=== PATIENT | male | born 1990 | race Caucasian/White ===

== ENCOUNTER 2019-05-09 21:54 | Emergency (ER) | payer SELFPAY ==
--- NOTE | 2019-05-09 21:57 | ECG_ITS ---
Measurements Intervals [place] Rate: 100 P: 80 [place]: 148 QRS: 109 QRSD: 119 T: 66 QT: 283 QTc: 366 SINUS TACHYCARDIA RIGHT AXIS DEVIATION [QRS AXIS > 100] MODERATE INTRAVENTRICULAR CONDUCTION DELAY [110+ ms QRS DURATION] NONSPECIFIC T-WAVE ABNORMALITY No previous ECG available for comparison Electronically Signed On 05-10-2019 17:32:55 DATA SCIENCES DIRECTOR by Padma Melara M.D. [email or web address]
--- NOTE | 2019-05-09 22:03 | ED_ITS ---
Entered by Marilu Mckeon, acting as scribe for Ximena Ventura MD HPI - Psych General: Chief Complaint: Psychiatric Symptoms Stated Complaint: OVERDOSE Source: patient and EMS Mode of arrival: EMS Limitations: no limitations History of Present Illness: HPI Narrative: 28 y/o male presents to the ED post drug overdose. Pt states this was an attempt to harm himself. Pt has a hx of this behavior. He has tried to hang himself in the past. Pt took approximately 10 pills each of: Doxephin HCL 50 mg, Citalopram 20 mg, and Quetiapine 25 mg. Pt is lethargic upon exam. complaint: suicidal ideation and feels depressed Onset (ago): hour(s) Duration: constant History of same: Yes Associated symptoms: Reports depression and suicidal ideation If self harm: admits thoughts of self harm and intentional overdose Review of Systems Const: Denies: fever or chills Eyes: Denies: change in vision ENMT: Denies: throat pain or mouth pain Card: Denies: chest pain Resp: Denies: shortness of breath GI: Denies: abdominal pain, nausea, vomiting or diarrhea Musc: Denies: back pain or joint pain Skin/Breast: Denies: rash Neuro: Denies: headache or behavioral changes Psych: Reports: depression and suicidal ideation Endo: Denies: excessive urination Sukhdev/Lymph: Denies: easy bruising All/Imm: Denies: hives PFSH ED PFSH: Statuses (acute, chronic, etc) shown below reflect problem list status as previously entered and may not be historically accurate Social History Smoking and tobacco status: current every day smoker Physical Exam Const: GENERAL APPEARANCE: disheveled and lethargic ORIENTATION/CONSCIOUSNESS: Yes lethargic HENMT: COMMON NORMALS: normocephalic and external nose normal HEAD & SCALP: normocephalic NOSE: external nose normal Eye: COMMON NORMALS: PERRL PUPIL: Yes PERRL Neck/C-Spine: COMMON NORMALS: full ROM and no lymphadenopathy Chest: COMMONS NORMALS: inspection of chest normal Resp: COMMON NORMALS: normal respiratory effort, no use of accessory muscles and clear to auscultation bilaterally AUSCULTATION: clear to auscultation bilaterally Cardio: COMMON NORMALS: regular rate and regular rhythm RATE: regular rate RHYTHM: regular rhythm GI: COMMON NORMALS: normal to inspection, nondistended, normoactive bowel sounds, soft to palpation, non-tender and no masses PALPATION: Yes soft Back/Pelvis: THORACIC SPINE/UPPER BACK: Yes normal to inspection Extremity: COMMON NORMALS: normal to inspection, full ROM and normal capillary refill Neuro: SENSORIUM/ORIENTATION: Yes lethargic Psych: ACTIVITY/MOTOR BEHAVIOR: Yes other (lethargic) MOOD & AFFECT: Yes depressed mood THOUGHT CONTENT: Yes suicidality Skin: COMMON NORMALS: no rashes or lesions noted GENERAL SKIN EXAM: no rashes or lesions noted MDM - Psych MDM Narrative: Medical decision making narrative: Patient presents here with overdose. Patient's been well-appearing here with normal vital signs. I spoke to hospitalist at [facility] and will transfer there as we do not have any ICU beds. Patient transferred by EMS. Lab Data: Labs: Lab Results 05/09/19 05/09/19 05/09/19 Range/Units 22:07 22:10 22:10 WBC 8.0 (4.0-10.0) 10^3/ uL RBC 4.56 (4.1-5.3) 10^6/u L Hgb 14.3 (11.7-16.6) g/dL Hct 41.8 L (42.0-52.0) % MCV 91.7 (80-94) fL MCH 31.4 (28.0-34.0) pg MCHC 34.2 (30.0-36.0) g/dL RDW 12.7 (12.1-15.1) % Plt Count 258 (130-400) 10^3/c mm MPV 10.1 (7.4-10.4) fL Neut % (Auto) 56.8 % Lymph % (Auto) 37.2 % [place] % (Auto) 4.6 % Eos % (Auto) 0.9 % Baso % (Auto) 0.4 % Neut # (Auto) 4.5 (1.8-7.7) 10^3/u L Lymph # (Auto) 3.0 (0.8-4.8) 10^3/u L [place] # (Auto) 0.4 (0.2-0.9) 10^3/u L Eos # (Auto) 0.1 (0.0-0.8) 10^3/u L Baso # (Auto) 0.0 (0.0-0.1) 10^3/u L Nucleated RBC % (a uto) 0 % Nucleated RBCs # 0.0 /100WBC Sodium 141 (136-145) mmol/L Potassium 3.4 L (3.5-5.1) mmol/L Chloride 105 (98-107) mmol/L Carbon Dioxide 21 L (22-29) mmol/L Anion Gap 18.4 (5-19) BUN 8 (6-20) mg/dL Creatinine 0.9 (0.7-1.2) mg/dL GFR Calculation 100.5 (90-130) mL/min Glucose 111 H (74-109) mg/dL Calcium 9.8 (8.6-10.0) mg/Dl Total Bilirubin 0.3 (0.15-1.2) mg/dL AST 21 (0-40) U/L ALT 16 (0-41) U/L Alkaline Phosphata se 65 (40-130) IU/L Total Protein 7.0 (6.6-8.7) g/dL Albumin 4.9 (3.5-5.2) g/dL Globulin 2.1 (1.3-4.6) g/dL Salicylates < 0.3 L (3-10) mg/dL Urine Opiates Scre en Negative (Negative) ng/mL Acetaminophen < 5.0 L (10-30) ug/mL Ur Barbiturates Sc reen Negative (Negative) ng/mL Ur Phencyclidine S crn Negative (Negative) ng/mL Ur Amphetamines Sc reen Negative (Negative) ng/mL U Benzodiazepines Scrn Negative (Negative) ng/mL Urine Cocaine Scre en Negative (Negative) ng/mL U Marijuana (THC) Screen Positive H (Negative) ng/mL Ethyl Alcohol 21 H (0-10) mg/dL EKG Data^: EKG 1: Attestation: I personally reviewed and interpreted this EKG as follows: EKG interpretation date: 05/09/19 EKG interpretation time: 22:53 Interpretation: sinus tach hr [address] or t wave abnormalities qrs 119 qtc 340 Discharge Plan Discharge Patient Disposition: Xfer Other Clinical Impression: Suicidal ideation Overdose Qualifiers: Encounter type: initial encounter Injury intent: intentional self-harm Qualified Code(s): T50.902A - Poisoning by unspecified drugs, medicaments and biological substances, intentional self-harm, initial encounter Condition: Stable Coding Level of Care Code 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
[2019-05-09 22:09] VITALS: BP 130/66; PULSE 96; RESP 18; TEMP 36.7; O2SAT 97; BMI 21.4
[2019-05-09 22:16] LABS: Basophils % 0.4 %; Eosinophils # 0.1 10^3/uL (0.0-0.8); Eosinophils % 0.9 %; Hematocrit 41.8 % (42.0-52.0); Hemoglobin 14.3 g/dL (11.7-16.6); Lymphocytes % 37.2 %; Mean Corpuscular HGB Conc 34.2 g/dL (30.0-36.0); Mean Corpuscular Hemoglobin 31.4 pg (28.0-34.0); Mean Corpuscular Volume 91.7 fL (80-94); Mean Platelet Volume 10.1 fL (7.4-10.4); Monocytes # 0.4 10^3/uL (0.2-0.9); Monocytes % 4.6 %; Neutrophils # 4.5 10^3/uL (1.8-7.7); Neutrophils % 56.8 %; Nucleated Red Blood Cells % 0 %; Platelet Count 258 10^3/cmm (130-400); Red Blood Count 4.56 10^6/uL (4.1-5.3); Red Cell Distribution Width 12.7 % (12.1-15.1)
[2019-05-09 22:29] VITALS: BP 134/68; PULSE 99; RESP 12; O2SAT 96
[2019-05-09] MEDS: sodium chloride 0.9% 1,000 ML 999 ML IV (22:35)
[2019-05-09 22:43] LABS: Amphetamines Screen Urine Negative (Negative); Barbiturates Screen Urine Negative (Negative); Benzodiazepines Screen Urine Negative (Negative); Cocaine Screen Urine Negative (Negative); Opiate Screen Urine Negative (Negative); PCP Screen Urine Negative (Negative); THC Screen Urine Positive (Negative)
[2019-05-09 22:47] LABS: Alanine Aminotransferase 16 U/L (0-41); Albumin Level 4.9 g/dL (3.5-5.2); Alcohol Level 21 mg/dL (0-10); Alkaline Phosphatase 65 IU/L (40-130); Anion Gap 18.4 (5-19); Aspartate Amino Transferase 21 U/L (0-40); Blood Urea Nitrogen 8 mg/dL (6-20); Calcium 9.8 mg/Dl (8.6-10.0); Carbon Dioxide 21 mmol/L (22-29); Chloride 105 mmol/L (98-107); Globulin 2.1 g/dL (1.3-4.6); Glomerular Filtration Rate 100.5 mL/min (90-130); Glucose 111 mg/dL (74-109); Potassium 3.4 mmol/L (3.5-5.1); Sodium 141 mmol/L (136-145); Total Bilirubin 0.3 mg/dL (0.15-1.2)
[2019-05-09 22:56] LABS: Acetaminophen < 5.0 ug/mL (10-30); Salicylate < 0.3 mg/dL (3-10)
[2019-05-10] MEDS: sodium chloride 0.9% 1,000 ML 999 ML IV ×2 (01:08→01:09)
[2019-05-10 01:44] VITALS: PULSE 95; RESP 20; O2SAT 95
== END 2019-05-10 01:46 | disposition other institution (70) ==
PROVIDERS: Emergency Provider Emergency Medicine
DX: T65.92XA Toxic effect of unspecified substance, intentional self-harm, initial encounter (principal); F17.210 Nicotine dependence, cigarettes, uncomplicated
CPT/HCPCS: 36415; 80053; 80307; 85025; 93005; 96360; 96361; 99284; J7030